=== PATIENT | male | born 2000 | race Caucasian/White ===

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

== ENCOUNTER 2019-10-21 16:56 | Emergency (ER) | payer OTHER ==
[2019-10-21 17:25] VITALS: BP 111/62
--- NOTE | 2019-10-21 18:12 | UC ---
HPI Febrile Illness - HPI Summary HPI Summary: 19yo male presenting with fever of 101.4 and "sensitive skin" that began this morning. Patient states that his skin "just feels more sensitive when he has a fever." Also notes headache intermittent x3 days. Notes minimal nasal congestion and sore throat. Denies cough. Denies decreased appetite. Taking ibuprofen with relief of fever. - History of Current Complaint Chief Complaint: UCGeneralIllness Hx Obtained From: Patient Pain Intensity: 0 - Allergy/Home Medications Allergies/Adverse Reactions: Allergies Allergy/AdvReac Type Severity Reaction Status Date / Time No Known Allergies Allergy Verified 10/21/19 17:25 Home Medications: Home Medications Acetaminophen [Acetaminophen Extra Strength] 1,000 mg PO Q4HR PRN 08/20/18 [ History Confirmed 10/21/19] Ibuprofen TAB* [Motrin TAB*] 400 mg PO QID PRN 10/21/19 [History Confirmed 10/21] PMH/Surg Hx/FS Hx/Imm Hx - Surgical History Surgical History: Yes Surgery Procedure, Year, and Place: ear tubes x 2 - Family History Known Family History: Positive: Hypertension, Non-Contributory - Social History Alcohol Use: None Substance Use Type: None Smoking Status (MU): Heavy Every Day Tobacco Smoker Type: Cigarettes Amount Used/How Often: 1/2 ppd Length of Time of Smoking/Using Tobacco: since age 16 Household Exposure Type: Cigarettes - Immunization History Vaccination Up to Date: Yes Review of Systems All Other Systems Reviewed And Are Negative: Yes Constitutional: Positive: Fever Skin: Positive: Other - "sensitive skin" ENT: Positive: Sore Throat, Sinus Congestion Respiratory: Positive: Negative Cardiovascular: Positive: Negative Gastrointestinal: Positive: Negative Musculoskeletal: Positive: Negative Neurological/Mental Status: Positive: Headache Physical Exam - Summary Physical Exam Summary: Vital Signs Reviewed: Yes A+Ox3, no distress, well-appearing Eyes: Conjunctiva Clear ENT: Hearing grossly normal, TM x 2 clear, moist, uvula midline, no exudate, no erythema Neck: Positive: Supple Respiratory: Positive: No respiratory distress, No accessory muscle use + CTA throughout no w/r Cardiovascular: RRR nl s1, s2 no m/r Musculoskeletal Exam: WELLS x 4 without difficulty Neurological: Positive: Alert Psychological: Positive: age appropriate behavior Skin: Positive: no rash, no ecchymosis Vital Signs: Initial Vital Signs Temp 98.8 F 02/27/20 17:21 Pulse 61 10/21/19 17:21 Resp 16 10/21/19 17:21 BP 111/62 10/21/19 17:21 Pulse Ox 99 10/21/19 17:21 Course/Dx - Course Course Of Treatment: Patient declined flu and strep testing, stating "it's probably just a cold but I wanted to make sure my fever went down." Patient also requested note to excuse him from work. I educated on viral illness and symptomatic treatment. Instructed to follow up with pcp if symptoms persist. Patient voiced understanding and agreed with treatment plan. - Diagnoses Provider Diagnosis: Flu-like symptoms Discharge ED - Sign-Out/Discharge Documenting (check all that apply): Patient Departure All imaging exams completed and their final reports reviewed: No Studies - Discharge Plan Condition: Stable Disposition: HOME Patient Education Materials: Viral Syndrome (ED) Forms: *Work Release Referrals: Lindy Torre MD [Primary Care Provider] - If Needed Additional Instructions: Your symptoms are likely caused by a virus and should resolve without treatment. You may continue with tylenol and ibuprofen for fever and pain relief. Increase your fluid intake. Follow up with your primary care provider if symptoms do not improve within 7- 10 days. - Billing Disposition and Condition Condition: STABLE Disposition: Home - Attestation Statements Provider Attestation: Per institutional requirements, I have reviewed the chart, however, I was not consulted specifically or made aware of this patient by the midlevel provider. I did not personally evaluate, interact with, or disposition this patient. EK
== END 2019-10-21 18:23 | disposition home or self-care (01) ==
LOC: UCCORT 16:56
DX: J02.9 Acute pharyngitis, unspecified (principal); R50.9 Fever, unspecified; R09.81 Nasal congestion; R51 Headache; F17.210 Nicotine dependence, cigarettes, uncomplicated
CPT/HCPCS: 99211; G0463